=== PATIENT | male | born 2000 | race Caucasian/White ===

== ENCOUNTER 2021-02-22 13:45 | Emergency (ER) | payer BC | END 2021-02-22 16:14 | disposition home or self-care (01) | LOC: CSHERS 13:45 | DX: S52.124A Nondisplaced fracture of head of right radius, initial encounter for closed fracture (principal); F17.220 Nicotine dependence, chewing tobacco, uncomplicated; F17.290 Nicotine dependence, other tobacco product, uncomplicated; W22.8XXA Striking against or struck by other objects, initial encounter | CPT/HCPCS: 24650 ==

== ENCOUNTER 2024-01-04 23:56 | Emergency (ER) | payer SELFPAY | END 2024-01-05 02:00 | disposition home or self-care (01) | LOC: CSHERS 23:56 | DX: S93.401A Sprain of unspecified ligament of right ankle, initial encounter (principal); S90.01XA Contusion of right ankle, initial encounter; F17.220 Nicotine dependence, chewing tobacco, uncomplicated | CPT/HCPCS: 96372; J1885 ==